=== PATIENT | female | born 1995 | race Caucasian/White ===

== ENCOUNTER 2021-10-22 13:02 | Inpatient (IN) | payer SELFPAY ==
[2021-10-22] MEDS ORDERED: ePHEDrine SULFATE 50 MG/1 ML INJ IV PRN ×2 (13:21→15:59)
[2021-10-22] MEDS ORDERED: CARBOPROST TROMETHAMINE 250 MCG/1 ML INJ IM PRN (13:21)
[2021-10-22] MEDS ORDERED: MINERAL OIL 30 ML ORAL LIQD PO PRN (13:21)
[2021-10-22] MEDS ORDERED: ACETAMINOPHEN 325 MG TAB PO PRN ×2 (13:21→18:20)
[2021-10-22] MEDS ORDERED: miSOPROStol 200 MCG TAB PR PRN (13:21)
[2021-10-22] MEDS ORDERED: BUTORPHANOL 2 MG/1 ML INJ IV PRN ×2 (13:21)
[2021-10-22] MEDS ORDERED: TERBUTALINE 1 MG/1 ML INJ SUB-Q PRN (13:21)
[2021-10-22] MEDS ORDERED: OXYTOCIN 10 UNIT/1 ML INJ IM PRN (13:21)
[2021-10-22] MEDS ORDERED: METHYLERGONOVINE MALEATE 0.2 MG/ML VIAL IM PRN (13:21)
[2021-10-22] MEDS ORDERED: LOPERAMIDE 2 MG CAP PO PRN (13:21)
--- NOTE | 2021-10-22 13:42 | History and Physical Report ---
History of Present Illness Date of examination: 10/22/21 Date of admission: 10/22/2021 Chief complaint: I'm having contractions History of present illness: 26 y/o patient of [facility] and presents to labor an delivery in active labor. GBS negative Past History Past Surgical History: no surgical history [employer] History: abnormal PAP smear Family/Genetic History: none - Obstetrical History Expected Date of Delivery: 10/25/21 Actual Gestation: 39 Week(s) 4 Day(s) : 2 Para: 1 Number of Living Children: 1 Medications and Allergies Active Meds: Active Medications Acetaminophen (Acetaminophen 325 Mg Tab) 650 mg PO Q4H PRN PRN Reason: Pain, Mild (1-3) Butorphanol Tartrate (Butorphanol 2 Mg/1 Ml Inj) 1 mg IV Q2H PRN PRN Reason: Pain, Moderate(4-6) LABOR PAIN Butorphanol Tartrate (Butorphanol 2 Mg/1 Ml Inj) 2 mg IV Q2H PRN PRN Reason: Pain , Severe (7-10) Carboprost Tromethamine (Carboprost Tromethamine 250 Mcg/1 Ml Inj) 250 mcg IM ONCE PRN PRN Reason: Uterine Bleeding Ephedrine Sulfate (Ephedrine Sulfate 50 Mg/1 Ml Inj) 10 mg IV Q2M PRN PRN Reason: Hypotension Oxytocin/Sodium Chloride (Pitocin/Ns 30 Unit/500ml) 30 units in 500 mls @ 2 mls/hr IV TITR KECIA; Protocol Lactated Ringer's (Lactated Ringers) 1,000 mls @ 125 mls/hr IV DIRECT KECIA Oxytocin/Sodium Chloride (Pitocin/Ns 30 Unit/500ml) 30 units in 500 mls @ 40 mls/hr IV TITR KECIA; Protocol Lidocaine (Lidocaine (2%) 20 Mg/1 Ml Vial 20 Ml Mdv) 20 ml INFILTRATI ONCE ONE Stop: 10/22/21 13:22 Loperamide HCl (Loperamide 2 Mg Cap) 2 mg PO ONCE PRN PRN Reason: give with Hemabate Methylergonovine Maleate (Methylergonovine Maleate 0.2 Mg/Ml Vial) 0.2 mg IM ONCE PRN PRN Reason: Uterine Bleeding Mineral Oil (Mineral Oil 30 Ml Oral Liqd) 30 ml PO QHS PRN PRN Reason: Constipation Misoprostol (Misoprostol 200 Mcg Tab) 800 mcg NH ONCE PRN PRN Reason: Uterine Bleeding Oxytocin (Oxytocin 10 Unit/1 Ml Inj) 10 unit IM ONCE PRN PRN Reason: Uterine Bleeding Terbutaline Sulfate (Terbutaline 1 Mg/1 Ml Inj) 0.25 mg SUB-Q ONCE PRN PRN Reason: Hyperstimulation/Hypertonicity Review of Systems All systems: negative - Physical Exam Breasts: Positive: deferred Cardiovascular: Regular rate Abdomen: Positive: soft Genitourinary (Female): Positive: normal external genitalia Vulva: both: normal Uterus: Positive: enlarged Adnexa: both: normal Deep Tendon Reflex Grade: Normal +2 - Obstetrical FHR: category 1 Uterine Contraction Monitor Mode: External Cervical Dilatation: 5 Cervical Effacement Percentage: 80 station: -1 Uterine Contraction Pattern: Irregular Uterine Contraction Intensity: Mild Results All other labs normal. Assessment and Plan A: 39.4 weeks in active labor P: Expect Desires epidural
[2021-10-22] MEDS ORDERED: LACTATED RINGERS 1,000 ML IV SCH (15:00)
[2021-10-22] MEDS ORDERED: OXYTOCIN DRIP 30 UNITS/500 ML BAG IV SCH ×2 (15:00)
[2021-10-22 15:01] LABS: Hematocrit 33.1 % (30.3-42.9); Hemoglobin 11.9 gm/dl (10.1-14.3); Mean Corpuscular HGB Conc 36 % (30-34); Mean Corpuscular Volume 107 fl (79-97); Platelet Count 146 K/mm3 (140-440); Red Blood Count 3.11 M/mm3 (3.65-5.03); Red Cell Distribution Width 13.3 % (13.2-15.2)
[2021-10-22] MEDS ORDERED: fentaNYL-BUPIV 2 MCG/ML-0.125% 200 MCG/100 ML BAG EPIDURAL ONE (15:31)
[2021-10-22] MEDS ORDERED: NALOXONE 0.4 MG/1 ML INJ IV PRN (15:59)
[2021-10-22] MEDS ORDERED: fentaNYL-BUPIV 2 MCG/ML-0.125% 200 MCG/100 ML BAG EPIDURAL SCH (16:00)
[2021-10-22] MEDS ORDERED: LIDOCAINE (2%) 20 MG/1 ML VIAL 20 ML MDV INFILTRATI ONE (16:00)
--- NOTE | 2021-10-22 16:04 | Anesthesia Consultation ---
Anesthesia Consult and Med Hx Date of service: 10/22/21 - Airway Anesthetic Teeth Evaluation: Good ROM Head & Neck: Adequate Mental/Hyoid Distance: Adequate Mallampati Class: Class II Intubation Access Assessment: Good - Pulmonary Exam CTA: Yes - Cardiac Exam Cardiac Exam: RRR - Pre-Operative Health Status ASA Pre-Surgery Classification: ASA2 Proposed Anesthetic Plan: Epidural - Pulmonary Hx Smoking: No Hx Asthma: No COPD: No Hx Pneumonia: No - Cardiovascular System Hx Hypertension: No - Central Nervous System Hx Seizures: No Hx Psychiatric Problems: No - Endocrine Hx Renal Disease: No Hx End Stage Renal Disease: No Hx Hypothyroidism: No Hx Hyperthyroidism: No - Hematic Hx Anemia: No Hx Sickle Cell Disease: No - Other Systems Hx Alcohol Use: No Hx Substance Use: No Hx Obesity: No
--- NOTE | 2021-10-22 16:40 | Progress Note ---
Labor Epidural - Labor Epidural Start Time: 16:11 Stop Time: 16:15 Performed by:: HEENA GERMAIN Procedure: Patient is requesting epidural for labor pain. H&P and labs reviewed. Procedure explained, questions answered, consent obtained. Patient placed in sitting position with monitors applied. Timeout performed immediately before start of procedure. Prep/drape in usual sterile fashion. Skin localized 3 mL 1% lidocaine at L[3]-L[4] interspace. 17-gauge Touhy epidural needle advanced to GEM with saline at [6] cm. No blood/CSF noted via epidural needle. Epidural catheter advanced to [10] cm. Negative aspiration for blood and CSF via catheter, negative response to test dose 3 ml 1.5% lidocaine w/ Epi. Sterile dressing applied followed by tape reinforcement. Patient tolerated procedure well. No immediate complications noted.
--- NOTE | 2021-10-22 18:19 | Procedure Note ---
OB Delivery Note - Delivery Date of Delivery: 10/22/21 Surgeon: ALLI FULLER Estimated blood loss: other (400) - Vaginal Delivery presentation: vertex Delivery position: OA Intrapartum events: none Delivery augmentation: rupture of membranes, pitocin Delivery monitor: external FHT, external uterine Route of delivery: Delivery placenta: spontaneous Delivery cord: 3 umbilical vessels Episiotomy: none Delivery laceration: none Anesthesia: epidural Delivery comments: of a viable female 7# 12 oz over intact perineum on October 22 @ [id number]. Placenta delivered 3VCI. FF @ U-2, lochia small. 8/9. Mother and baby doing well. - Infant A at 1 minute: 8 at 5 minutes: 9 Infant Gender: Female (7# 12 oz)
[2021-10-22] MEDS ORDERED: oxyCODONE /ACETAMINOPHEN 5-325MG TAB PO PRN (18:20)
[2021-10-22] MEDS ORDERED: diphenhydrAMINE 25 MG CAP PO PRN (18:20)
[2021-10-22] MEDS ORDERED: LANOLIN/ZINC/DIMETHICONE (LANSINOH) 7 GM TP PRN (18:20)
[2021-10-22] MEDS ORDERED: WITCH HAZEL/ GLYCERIN PAD TP PRN (18:20)
[2021-10-22] MEDS ORDERED: PROMETHAZINE 25 MG TAB PO PRN (18:20)
[2021-10-22] MEDS ORDERED: ONDANSETRON 4 MG/2 ML INJ IV PRN (18:20)
[2021-10-22] MEDS: IBUPROFEN 800 MG TAB PO SCH (23:42)
[2021-10-23] MEDS: IBUPROFEN 800 MG TAB PO SCH ×3 (06:42→18:37)
[2021-10-23 08:14] LABS: Hemoglobin 10.7 gm/dl (10.1-14.3)
--- NOTE | 2021-10-23 09:46 | Progress Note ---
Assessment and Plan A: PPD #1 -stable P: Desires discharge today Discharge instructions given Subjective - Subjective Date of service: 10/23/21 Interval history: 26 y/o patient of [facility] and presents to labor an delivery in active labor. GBS negative Patient reports: appetite normal : doing well Objective - Vital Signs Latest vital signs: Vital Signs Temp Pulse Resp BP BP Pulse Ox 10/23/21 08:40 97.7 F 86 20 113/73 96 10/23/21 04:21 98.7 F 82 16 96/54 98 10/23/21 00:28 97.8 F 88 18 105/66 97 10/22/21 20:30 98.3 F 62 18 111/66 99 10/22/21 20:05 75 96 10/22/21 20:00 65 96 10/22/21 19:55 62 96 10/22/21 19:52 60 105/71 10/22/21 19:50 65 96 10/22/21 19:45 66 97 10/22/21 19:40 70 97 10/22/21 19:37 62 101/70 10/22/21 19:35 65 97 10/22/21 19:30 61 95 10/22/21 19:25 58 L 97 10/22/21 19:22 60 99/64 10/22/21 19:20 60 95 10/22/21 19:15 57 L 95 10/22/21 19:10 66 96 10/22/21 19:07 73 104/65 10/22/21 19:05 73 96 10/22/21 19:00 62 96 10/22/21 18:55 76 97 10/22/21 18:52 67 101/59 10/22/21 18:50 68 96 10/22/21 18:45 61 96 10/22/21 18:40 73 96 10/22/21 18:37 71 100/52 10/22/21 18:35 65 95 10/22/21 18:30 70 96 10/22/21 18:25 77 97 10/22/21 18:20 85 95 10/22/21 18:17 88 10/22/21 18:14 83 95 10/22/21 18:10 80 99/52 10/22/21 18:09 72 97 10/22/21 18:07 75 102/51 10/22/21 18:04 73 111/57 97 10/22/21 18:02 62 108/54 10/22/21 17:59 77 96 10/22/21 17:54 75 97 10/22/21 17:53 86 104/52 10/22/21 17:50 72 129/59 10/22/21 17:49 72 100 10/22/21 17:44 84 97 10/22/21 17:43 85 117/69 91 10/22/21 17:41 84 126/69 10/22/21 17:38 81 98 10/22/21 17:36 46 L 80 L 10/22/21 17:34 83 126/90 10/22/21 17:33 89 98 10/22/21 17:32 75 121/83 10/22/21 17:28 83 122/83 96 10/22/21 17:25 74 118/73 10/22/21 17:23 87 97 10/22/21 17:22 77 130/78 10/22/21 17:20 85 134/86 10/22/21 17:18 80 97 10/22/21 17:16 70 111/72 10/22/21 17:13 67 121/77 96 10/22/21 17:10 73 124/84 10/22/21 17:08 76 128/86 99 10/22/21 17:04 71 111/68 10/22/21 17:03 64 98 10/22/21 17:01 70 126/82 10/22/21 16:58 74 121/79 99 10/22/21 16:55 67 118/75 10/22/21 16:53 73 117/72 98 10/22/21 16:49 80 94/56 10/22/21 16:48 80 98 10/22/21 16:47 78 103/60 10/22/21 16:46 74 91/51 10/22/21 16:45 71 97/56 10/22/21 16:44 76 100/55 10/22/21 16:43 74 97 10/22/21 16:40 80 103/70 10/22/21 16:38 70 96 10/22/21 16:33 77 96 10/22/21 16:32 83 91 10/22/21 16:28 82 103/66 91 10/22/21 16:27 79 90 10/22/21 16:25 77 108/69 10/22/21 16:23 73 91 10/22/21 16:22 86 113/72 10/22/21 16:21 85 91 10/22/21 16:19 81 109/71 10/22/21 16:18 86 93 10/22/21 16:16 75 103/70 10/22/21 16:15 78 91 10/22/21 16:14 76 109/74 10/22/21 16:13 77 92 10/22/21 16:10 83 91 10/22/21 16:08 83 93 10/22/21 16:03 79 93 10/22/21 15:58 76 96 10/22/21 15:53 78 96 10/22/21 15:48 86 96 10/22/21 14:49 84 94 10/22/21 14:47 84 94 10/22/21 14:44 90 95 10/22/21 14:41 89 94 10/22/21 14:39 93 H 95 10/22/21 14:35 86 94 10/22/21 14:34 86 93 10/22/21 14:30 92 H 92 10/22/21 14:29 97 H 95 10/22/21 14:24 91 H 95 10/22/21 14:20 94 H 94 10/22/21 14:19 84 95 10/22/21 14:14 100 H 95 10/22/21 14:12 99 H 94 10/22/21 14:09 91 H 95 10/22/21 14:04 90 95 10/22/21 14:02 94 H 94 10/22/21 13:59 91 H 96 10/22/21 13:56 98.4 F 16 10/22/21 13:54 96 H 96 10/22/21 13:49 92 H 116/77 97 Intake and Output 10/22/21 10/23/21 10/23/21 22:59 06:59 14:59 Intake Total 540 120 Output Total 2000 400 Balance -1460 -280 Intake: Oral 240 120 Intake, Free Water 300 Output: Urine 1999 400 Void 2000 400 Other: Total, Intake Amount 240 120 Total, Output Amount 600 400 # Voids Void 1 Estimated Blood Loss 300 - Exam Breasts: Present: deferred Cardiovascular: Present: Regular rate Abdomen: Present: soft Vulva: both: normal Uterus: Present: fundal height below umbilicus Deep Tendon Reflex Grade: Normal +2 Incision: Present: normal - Labs Labs: Abnormal lab results 10/22/21 Range/Units 14:20 RBC 3.11 L (3.65-5.03) M/mm3 MCV 107 H (79-97) fl MCH 38 H (28-32) pg MCHC 36 H (30-34) %
--- NOTE | 2021-10-23 09:48 | Discharge Summary ---
Providers - Providers Date of Admission: 10/22/21 14:32 Date of discharge: 10/23/21 Attending physician: KALE DUFFY Primary care physician: HUMBERTO GLOVER MD Hospitalization Reason for admission: active labor Delivery: Episiotomy: none Laceration: none Other procedures: none baby: female Hospital course: uneventful Condition at discharge: Good Disposition: 01 HOME / SELF CARE / HOMELESS Plan - Provider Discharge Summary Activity: routine, no sex for 6 weeks, no strenuous exercise Diet: routine Instructions: routine Additional instructions: [] Smoking cessation referral if applicable(refer to patient education folder for contact #) [] Refer to [facility]'s [facility] Booklet Call your doctor immediately for: * Fever > 100.5 * Heavy vaginal bleeding ( >1 pad per hour) * Severe persistent headache * Shortness of breath * Reddened, hot, painful area to leg or breast * Drainage or odor from incision. * Keep incision clean and dry at all times and follow doctor's instructions regarding bathing/showering - Follow up plan Follow up: PRIMARY CAREMD [Primary Care Provider] - 6 Weeks
--- NOTE | 2021-10-23 11:44 | Post Anesthesia Evaluation ---
- Post Anesthesia Evaluation Patient Participated: Yes Airway Patent: Yes Stable Respiratory Function: Yes Nausea/Vomiting: No Temp > 96.8F: Yes Pain Manageable: Yes Adequeate Hydration: Yes Anesthesia Complications: No Block Receding Appropriately: Yes Patient on Ventilator: No
[2021-10-23 20:23] VITALS: BP 106/71
== END 2021-10-23 22:30 | disposition home or self-care (01) | DRG 807 ==
LOC: APU 13:02 → TRG 13:02 → LD 13:33 → OB 20:25
PROVIDERS: ADMIT Obstetrics & Gynecology; ATTEND Obstetrics & Gynecology
PROC: 10E0XZZ Delivery of Products of Conception, External Approach (ICD-10-PCS; principal; 2021-10-22)
PROC: 3E0R3BZ Introduction of Anesthetic Agent into Spinal Canal, Percutaneous Approach (ICD-10-PCS; 2021-10-22)
PROC: 00HU33Z Insertion of Infusion Device into Spinal Canal, Percutaneous Approach (ICD-10-PCS; 2021-10-22)
DX: O80 Encounter for full-term uncomplicated delivery (principal); Z37.0 Single live birth; Z3A.39 39 weeks gestation of pregnancy; Z20.822 Contact with and (suspected) exposure to COVID-19
CPT/HCPCS: 36415; 85014; 85018; 85027; 86850; 86900; 86901; G0378; J3490; U0003